=== PATIENT | female | born 1985 | race Asian ===

== ENCOUNTER → 2020-09-01 | Day surgery (SDC) | payer OTHER ==
[~2020-09-01] MED LIST: NORCO 5-325 TA1 EACH PO; ONDANSETRON ODT8 MG PO; VITAMIN D PO
[2020-09-01 10:18] LABS: HCG (URINE) SCREEN NEGATIVE (NEGATIVE)
== END | disposition home or self-care (01) ==
LOC: FAS 09:31
PROVIDERS: Anesthesiology
DX: L72.0 Epidermal cyst (principal); L73.2 Hidradenitis suppurativa; M62.838 Other muscle spasm; Z20.822 Contact with and (suspected) exposure to COVID-19
CPT/HCPCS: 84703; J2250; J2405; J2704; J3010; J7120